=== PATIENT | female | born 1980 | race Caucasian/White ===

== ENCOUNTER 2020-11-22 14:56 | Emergency (ER) | payer BC, MEDICAID, OTHER, SELFPAY ==
[~2020-11-22] VITALS: Ht 175.3 cm; Wt 68.1 kg
[2020-11-22 15:07] VITALS: BP 151/98
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
--- NOTE | 2020-11-22 15:52 | NUR ---
LH DISCONTINUED, PT DISCHARGED PER ORDER AFTER RECIEVING MEAL TRAY. PT STABLE
== END 2020-11-22 16:01 | disposition home or self-care (01) ==
LOC: ED 15:59
DX: F32.9 Major depressive disorder, single episode, unspecified (principal); F43.0 Acute stress reaction; F17.200 Nicotine dependence, unspecified, uncomplicated
CPT/HCPCS: 99283